=== PATIENT | male | born 1985 ===

== ENCOUNTER 2016-09-14 23:40 | Emergency (ER) | payer SELFPAY ==
[2016-09-14 23:49] VITALS: BP 136/62; PULSE 88; RESP 20; TEMP 98.9; O2SAT 100
--- NOTE | 2016-09-15 00:01 | ED PDOC ---
HPI: Psych/Substance Abuse Time Seen by Provider: 09/14/16 23:45 Chief Complaint (Nursing): Alcohol Ingestion Chief Complaint (Provider): ETOH History Per: Patient, EMS Additional History Per: Patient, EMS Additional Complaint(s): 31 y/o male brought in by EMS for acute alcohol intoxication. Patient admits to drinking, denies acute medical or psychiatric complaints. Past Medical History Reviewed: Historical Data, Nursing Documentation, Vital Signs Vital Signs: Last Vital Signs Temp 98.9 F 09/14/16 23:45 Pulse 88 09/14/16 23:45 Resp 20 09/14/16 23:45 BP 136/62 09/14/16 23:45 Pulse Ox 100 09/14/16 23:45 - Medical History PMH: No Chronic Diseases - Surgical History Surgical History: No Surg Hx - Family History Family History: States: Unknown Family Hx - Immunization History Hx Tetanus Toxoid Vaccination: No Hx Influenza Vaccination: No Hx Pneumococcal Vaccination: No - Home Medications Home Medications: Ambulatory Orders Medication Instructions Recorded Unobtainable 05/25/16 - Allergies Allergies/Adverse Reactions: Allergies Allergy/AdvReac Type Severity Reaction Status Date / Time No Known Allergies Allergy Verified 09/14/16 23:49 Review of Systems ROS Statement: Except As Marked, All Systems Reviewed And Found Negative Physical Exam - Reviewed Nursing Documentation Reviewed: Yes Vital Signs Reviewed: Yes - Physical Exam Appears: Positive for: Well, Non-toxic, No Acute Distress Head Exam: Positive for: ATRAUMATIC, NORMAL INSPECTION, NORMOCEPHALIC Skin: Positive for: Normal Color Cardiovascular/Chest: Positive for: Regular Rate, Rhythm Respiratory: Positive for: Normal Breath Sounds Gastrointestinal/Abdominal: Positive for: Normal Exam Back: Positive for: Normal Inspection Extremity: Positive for: Normal ROM Neurologic/Psych: Positive for: Alert, Oriented, Gait (steady) - ECG O2 Sat by Pulse Oximetry: 100 - Progress ED Course And Treament: Patient awake, alert, oriented x3. Ambulating steady gait. Stable for discharge. Disposition - Clinical Impression Clinical Impression: Alcohol intoxication - Patient ED Disposition Is Patient to be Admitted: No Counseled Patient/Family Regarding: Diagnosis, Need For Followup - Disposition Disposition: Routine/Home Disposition Time: 00:01 Condition: STABLE Instructions: Alcohol Intoxication (ED) Print Language: [place]
== END 2016-09-15 00:07 | disposition home or self-care (01) ==
LOC: EDBD 23:40 → H.ER 23:40
DX: F10.129 Alcohol abuse with intoxication, unspecified (principal)

== ENCOUNTER 2016-12-05 14:53 | Emergency (ER) | payer OTHER ==
[2016-12-05 14:59] VITALS: BP 141/90; PULSE 91; RESP 16; TEMP 97.4; O2SAT 96
--- NOTE | 2016-12-05 15:15 | ED PDOC ---
HPI: Psych/Substance Abuse Time Seen by Provider: 12/05/16 15:01 Chief Complaint (Nursing): Alcohol Ingestion Chief Complaint (Provider): ETOH History Per: Patient Additional Complaint(s): 31 yo male, denies any PMH, presents to ED for suspected ETOH intoxication. Brought by EMS, was found [place] in a park, + AOB. Pt ambulates into ED room with steady gait. Pt without any Complaints. Pt admits to drinking tonight. Past Medical History Reviewed: Nursing Documentation, Vital Signs Vital Signs: Last Vital Signs Temp 97.4 F L 12/05/16 14:57 Pulse 91 H 12/05/16 14:57 Resp 16 12/05/16 14:57 BP 141/90 12/05/16 14:57 Pulse Ox 96 12/05/16 14:57 - Medical History PMH: No Chronic Diseases - Surgical History Surgical History: No Surg Hx - Family History Family History: States: Unknown Family Hx - Living Arrangements Living Arrangements: With Family - Social History Current smoker - smoking cessation education provided: No Alcohol: Social Drugs: Denies - Immunization History Hx Tetanus Toxoid Vaccination: No Hx Influenza Vaccination: No Hx Pneumococcal Vaccination: No - Home Medications Home Medications: Ambulatory Orders Medication Instructions Recorded Unobtainable 05/25/16 - Allergies Allergies/Adverse Reactions: Allergies Allergy/AdvReac Type Severity Reaction Status Date / Time No Known Allergies Allergy Verified 12/05/16 14:56 Review of Systems ROS Statement: Except As Marked, All Systems Reviewed And Found Negative Physical Exam - Reviewed Nursing Documentation Reviewed: Yes Vital Signs Reviewed: Yes - Physical Exam Appears: Positive for: Well, Non-toxic, No Acute Distress Head Exam: Positive for: ATRAUMATIC, NORMAL INSPECTION, NORMOCEPHALIC Skin: Positive for: Normal Color, Warm, DRY Eye Exam: Positive for: EOMI, Normal appearance, PERRL ENT: Positive for: Normal ENT Inspection Neck: Positive for: Normal, Painless ROM Cardiovascular/Chest: Positive for: Regular Rate, Rhythm Respiratory: Positive for: CNT, Normal Breath Sounds Gastrointestinal/Abdominal: Positive for: Normal Exam, Bowel Sounds, Soft Back: Positive for: Normal Inspection Extremity: Positive for: Normal ROM Neurologic/Psych: Positive for: Alert, Oriented - ECG O2 Sat by Pulse Oximetry: 96 Medical Decision Making Medical Decision Making: Pt doing well in ED, calm and cooperative. Offers no complaints. Ambulating with steady gait. Stable for discharge at this time. no medical intervention needed Disposition - Clinical Impression Clinical Impression: Alcohol use - Patient ED Disposition Is Patient to be Admitted: No - Disposition Disposition: Routine/Home Disposition Time: 15:15 Condition: STABLE Instructions: Alcohol Intoxication (ED) Forms: [facility] (Italian) Print Language: SAMMARINESE - POA Present On Arrival: None
== END 2016-12-05 16:00 | disposition home or self-care (01) ==
LOC: H.ER 14:53
DX: F10.10 Alcohol abuse, uncomplicated (principal)